=== PATIENT | male | born 1990 | race Caucasian/White ===

== ENCOUNTER 2017-03-27 21:21 | Emergency (ER) | payer BC, OTHER ==
[~2017-03-27] VITALS: Ht 175.3 cm; Wt 85.4 kg
[~2017-03-27 21:21] MED LIST: INSDGIPEN SC; INSU100I SC
[2017-03-27 21:45] VITALS: TEMP 37.3; Ht 175.3 cm; Wt 85.4 kg
[2017-03-27] MEDS ORDERED: KETOROLAC TROMETHAMINE 30 MG/ML VIAL IV STA (22:50)
[2017-03-27] MEDS ORDERED: ONDANSETRON INJ 2 MG/ML 2 ML VIAL IV STA (22:50)
[2017-03-27] MEDS ORDERED: OPTIRAY 320 IV PRN (23:00)
[2017-03-27] MEDS ORDERED: SODIUM CHLORIDE 0.9% 1000ML 1,000 ML IV ONE (23:00)
[2017-03-27 23:02] LABS: BASO % 0.2 %; BASO ABS # 0.02 K/uL (0-0.2); COMPLETE YES; EOS % 0.3 %; HEMATOCRIT 46.9 % (42-52); IG% 0.4 %; LYMPH % 6.6 %; LYMPH ABS # 0.75 K/uL (1.2-3.4); MEAN CELL VOLUME 85.6 fL (80-100); MEAN CORPUSCULAR HGB CONC 36.2 g/dl (32-36); MEAN PLATELET VOLUME 9.9 fL (7.4-10.4); NEUT % 86.5 %; PLATELET COUNT 244 K/uL (130-400); RED BLOOD COUNT 5.48 M/uL (4.7-6.1); WHITE BLOOD COUNT 11.38 K/uL (4.8-10.8)
[2017-03-27 23:06] LABS: URINE APPEARANCE CLEAR (CLEAR); URINE BILIRUBIN NEG (NEG); URINE COLOR YELLOW; URINE NITRITE NEG (NEG); URINE SPECIFIC GRAVITY 1.023 (1.000-1.030); UROBILINOGEN NEG (NEG); ZZUR CULT IF INDIC CLEAN CATCH NO
[2017-03-27 23:09] LABS: MANUAL MICROSCOPIC REQUIRED? NO; REVIEW REQ? NO
[2017-03-27 23:37] LABS: ALB/GLOB RATIO 1.2 (0.9-2); BETA-HYDROXYBUTYRATE 4.48 mg/dL (0.2-2.81); BUN/CREATININE RATIO 14.7 (10-20); CALCIUM 8.4 mg/dl (8.5-10.1); CREATININE 1.2 mg/dl (0.60-1.40); POTASSIUM 4.1 mmol/L (3.5-5.1)
[2017-03-28 00:53] LABS: VEN BLD GAS O2 SATURATION 91.4 %; VEN BLOOD GAS BASE EXCESS 0.9 mmol/L
[2017-03-28] MEDS ORDERED: SODIUM CHLORIDE 0.9% 1000ML 1,000 ML IV ONE (01:30)
--- NOTE | 2017-03-28 02:03 | EMERGENCY ROOM VISIT NOTE ---
History First contact with patient: 22:38 Chief Complaint: NAUSEA Stated Complaint: DIABETIC - DIZZINESS, HEADACHE, NAUSEA, BODY ACHE Nursing Triage Summary: Abdominal pain and nausea since last night. History of Present Illness The patient is a 27 year old male who presents to the Emergency Room with complaints of nausea and headache for the past one day. Additionally the patient is having some generalized abdominal discomfort. He is a type I diabetic and states that his sugar has been well controlled in the 180s. He has not had fever or chills. No known exposure to disease. He does not have chest pain, chest tightness, or shortness of breath. He is not having difficulties with using the bathroom. He rates his discomfort a crampy nonradiating 03/17. Review of Systems More than 10 systems were reviewed and otherwise negative with the exception of history of present illness. Past Medical/Surgical History Medical Problems: (1) Diabetes mellitus, type 2 Family History Diabetes mellitus Social History Smoking Status: Never Smoker Marital Status: in relationship Housing Status: lives with family Occupation Status: employed Current/Historical Medications Scheduled Insulin Glargine (Lantus Solostar), 20 UNITS SC HS Insulin Lispro (Human) (Humalog), SC WM Physical Exam Vital Signs Date Time Temp Pulse Resp B/P (MAP) Pulse Ox O2 Delivery O2 Flow Rate FiO2 03/28/17 02:24 60 18 113/53 96 Room Air 03/28/17 00:44 73 16 139/61 94 Room Air 03/27/17 23:20 86 20 121/64 93 Room Air 03/27/17 22:04 93 03/27/17 21:45 37.3 99 20 115/70 97 Room Air Physical Exam VITALS: Vitals are noted on the nurse's note and reviewed by myself. Vital signs stable. GENERAL: Well-developed, well-nourished, white male, who is in no acute distress and resting comfortably. Patient is cooperative with the examination. HEAD: Normocephalic atraumatic. EARS: External ear normal. External auditory canals clear, tympanic membranes pearly kamara without erythema or effusion bilaterally. EYES: Pupils equal round and reactive to light and accommodation. Conjunctivae without injection, sclerae without icterus. Extraocular movements intact. NOSE: Patent, turbinates without inflammation or discharge. MOUTH: Mucous membranes moist. Tonsils are not enlarged. Pharynx without erythema, blood, or exudate. Uvula midline. Airway patent. NECK: Supple without nuchal rigidity. No lymphadenopathy. No thyromegaly. Cervical spine is nontender. HEART: Regular rate and rhythm without murmurs gallops or rubs. LUNGS: Clear to auscultation bilaterally without wheezes, rales or rhonchi. No retractions or accessory muscle use. ABDOMEN: Positive normal bowel sounds x 4. Soft with generalized tenderness. No distinct point tenderness. No rebound or guarding. No CVA tenderness. MUSCULOSKELETAL: No muscle atrophy, erythema, or edema noted. Full range of motion without joint tenderness in all extremities. Medical Decision & Procedures ER Provider Diagnostic Interpretation: ABD/PELVIS IV AND ORAL CONT CT DOSE: 334.68 mGy.cm HISTORY: Flank pain abdominal pain TECHNIQUE: Multiaxial CT images of the abdomen and pelvis were performed following the use of intravenous and oral contrast. A dose lowering technique was utilized adhering to the principles of ALARA. COMPARISON STUDY: None. FINDINGS: The lung bases are clear. The liver, spleen, gallbladder, pancreas, kidneys, and adrenal glands are within normal limits. No bowel wall thickening or obstruction. The pelvic organs are unremarkable. No suspicious lytic or blastic osseous lesions. Nonvisualization of the appendix. No significant right lower quadrant inflammatory change IMPRESSION: No significant abnormality identified within the abdomen or pelvis. Nonvisualized appendix. No significant right lower quadrant inflammatory process. Laboratory Results 03/27/17 22:00 Red Blood Count 5.48, Mean Corpuscular Volume 85.6, Mean Corpuscular Hemoglobin 31.0, Mean Corpuscular Hemoglobin Concent 36.2, Mean Platelet Volume 9.9, Neutrophils (%) (Auto) 86.5, Lymphocytes (%) (Auto) 6.6, Monocytes (%) (Auto) 6.0, Eosinophils (%) (Auto) 0.3, Basophils (%) (Auto) 0.2, Neutrophils # (Auto) 9.86, Lymphocytes # (Auto) 0.75, Monocytes # (Auto) 0.68, Eosinophils # (Auto) 0.03, Basophils # (Auto) 0.02 03/27/17 22:00 Test 03/27/17 22:00 03/27/17 22:20 03/28/17 00:43 03/28/17 01:30 White Blood Count 11.38 K/uL (4.8-10.8) Red Blood Count 5.48 M/uL (4.7-6.1) Hemoglobin 17.0 g/dL (14.0-18.0) Hematocrit 46.9 % (42-52) Mean Corpuscular Volume 85.6 fL (80-100) Mean Corpuscular Hemoglobin 31.0 pg (25-34) Mean Corpuscular Hemoglobin Concent 36.2 g/dl (32-36) Platelet Count 244 K/uL (130-400) Mean Platelet Volume 9.9 fL (7.4-10.4) Neutrophils (%) (Auto) 86.5 % Lymphocytes (%) (Auto) 6.6 % Monocytes (%) (Auto) 6.0 % Eosinophils (%) (Auto) 0.3 % Basophils (%) (Auto) 0.2 % Neutrophils # (Auto) 9.86 K/uL (1.4-6.5) Lymphocytes # (Auto) 0.75 K/uL (1.2-3.4) Monocytes # (Auto) 0.68 K/uL (0.11-0.59) Eosinophils # (Auto) 0.03 K/uL (0-0.5) Basophils # (Auto) 0.02 K/uL (0-0.2) RDW Standard Deviation 38.0 fL (36.4-46.3) RDW Coefficient of Variation 12.1 % (11.5-14.5) Immature Granulocyte % (Auto) 0.4 % Immature Granulocyte # (Auto) 0.04 K/uL (0.00-0.02) Anion Gap 11.0 mmol/L (3-11) Est Creatinine Clear Calc Drug Dose 102.0 ml/min Estimated GFR () 96.8 Estimated GFR (Non- 83.5 BUN/Creatinine Ratio 14.7 (10-20) Calcium Level 8.4 mg/dl (8.5-10.1) Total Bilirubin 2.3 mg/dl (0.2-1) Aspartate Amino Transf (AST/SGOT) 16 U/L (15-37) Alanine Aminotransferase (ALT/SGPT) 23 U/L (12-78) Alkaline Phosphatase 93 U/L (45-117) Total Protein 7.3 gm/dl (6.4-8.2) Albumin 4.0 gm/dl (3.4-5.0) Globulin 3.3 gm/dl (2.5-4.0) Albumin/Globulin Ratio 1.2 (0.9-2) Lipase 71 U/L (73-393) Beta-Hydroxybutyric Acid 4.48 mg/dL (0.2-2.81) Urine Color YELLOW Urine Appearance CLEAR (CLEAR) Urine pH 6.0 (4.5-7.5) Urine Specific [place] 1.023 (1.000-1.030) Urine Protein NEG (NEG) Urine Glucose (UA) 3+ (NEG) Urine Ketones TRACE (NEG) Urine Occult Blood NEG (NEG) Urine Nitrite NEG (NEG) Urine Bilirubin NEG (NEG) Urine Urobilinogen NEG (NEG) Urine Leukocyte Esterase NEG (NEG) Venous Blood pH 7.42 (7.36-7.41) Venous Blood Partial Pressure CO2 40 mmHg (38.0-50.0) Venous Blood Partial Pressure O2 62 mmHg Venous Blood HCO3 25 mmol/L Venous Blood Oxygen Saturation 91.4 % Venous Blood Base Excess 0.9 mmol/L Bedside Glucose 375 mg/dl (70-99) Medications Administered Medications (Trade) Dose Ordered Sig/Candi Route Start Time Stop Time Status Last Admin Dose Admin Sodium Chloride 1,000 ml @ 999 mls/hr Q1H1M ONCE IV 03/27/17 23:00 03/28/17 00:00 DC 03/27/17 23:00 999 MLS/HR Ondansetron HCl (Zofran Inj) 4 mg NOW STAT IV 03/27/17 22:50 03/27/17 22:52 DC 03/27/17 23:09 4 MG Ketorolac Tromethamine (Toradol Inj) 30 mg NOW STAT IV 03/27/17 22:50 03/27/17 22:52 DC 03/27/17 23:09 30 MG Sodium Chloride 1,000 ml @ 999 mls/hr Q1H1M ONCE IV 03/28/17 01:30 03/28/17 02:30 DC 03/28/17 01:32 999 MLS/HR ED Course Physical exam and history were performed. Nursing notes, EMR, and Medication List were personally reviewed. Patient appears to have generalized abdominal cramping, nausea, and headache for the past one day. He is type I diabetic and his bedside glucose was nearly 400. IV access was established and labs were obtained. The patient was hydrated and medicated as above. CT scan of his abdomen and pelvis was performed. The patient has a very slightly elevated white blood cell count of 11,000. He does not have a significant anemia. His lab glucose is elevated at greater than 400 and he does have a small amount of ketones in his system. He is not acidotic. Lipase and transaminases are nondiagnostic. CT scan does not show acute findings. The patient was hydrated with normal saline throughout his stay. He felt much better after Toradol and Zofran. I discussed options of care with the patient including staying in the hospital, however he did voice a strong preference for discharge home. The patient is considered reliable and varying control of his diabetes usually. He will use his home insulin to manage his blood sugar and continue to drink lots of water to remain well hydrated. I suspect that he likely has a viral etiology for his discomfort, and this is exacerbating his glucose. He does not appear to be in DKA. The patient will need close follow- up, preferably in the next one day for recheck. He is to call his PCP to help arrange this. He was certainly invited back to the ER with any new, worsening, or concerning symptoms. The chart was completed utilizing [employer] Speech Voice Recognition Software. Grammatical errors, random word insertions, pronoun errors, and incomplete sentences are an occasional consequence of this system due to software limitations, ambient noise, and hardware issues. Any formal questions or concerns about the content, text, or information contained within the body of this dictation should be directly addressed to the provider for clarification. . Medical Decision Differential diagnosis: Etiologies such as appendicitis, diverticulitis, PUD, biliary pathology, UTI, pancreatitis, obstruction, mesenteric ischemia, aortic pathology, infections, inflammatory bowel disease, renal colic, as well as others were entertained. Impression Primary Impression: Generalized abdominal pain Additional Impression: Hyperglycemia due to type 1 diabetes mellitus Departure Information Dispostion Home / Self-Care Condition GOOD Forms HOME CARE DOCUMENTATION FORM, IMPORTANT VISIT INFORMATION Patient Instructions [facility] Additional Instructions You were seen and evaluated today on an emergency basis only. This is not a substitute for, or an effort to provide, complete comprehensive medical care. It is not possible to recognize and treat all injuries or illnesses in a single emergency department visit. For this reason it is recommended that you followup with your primary care physician later today for recheck of your condition. Call first thing in the morning to make your appointment. Let the office know you were seen in the ER to help facilitate care. Continue to manage your sugar at home. Drink plenty of water and remain well hydrated. You are welcome to return to the emergency department anytime with new, worsening, or concerning symptoms. Problem Qualifiers
[2017-03-28 02:24] VITALS: BP 113/53; PULSE 60; O2SAT 96
--- NOTE | 2017-03-28 06:33 | DIAGNOSTIC IMAGING REPORT ---
ABD/PELVIS IV AND ORAL CONT CT DOSE: 334.68 mGy.cm HISTORY: Flank pain abdominal pain TECHNIQUE: Multiaxial CT images of the abdomen and pelvis were performed following the use of intravenous and oral contrast. A dose lowering technique was utilized adhering to the principles of ALARA. COMPARISON STUDY: None. FINDINGS: The lung bases are clear. The liver, spleen, gallbladder, pancreas, kidneys, and adrenal glands are within normal limits. No bowel wall thickening or obstruction. The pelvic organs are unremarkable. No suspicious lytic or blastic osseous lesions. Nonvisualization of the appendix. No significant right lower quadrant inflammatory change IMPRESSION: No significant abnormality identified within the abdomen or pelvis. Nonvisualized appendix. No significant right lower quadrant inflammatory process. The above report was generated using voice recognition software. It may contain grammatical, syntax or spelling errors. Electronically signed by: Sd Osorio M.D. 03/28/2017 6:32 AM Dictated Date/Time: 03/28/2017 6:28 AM
== END 2017-03-28 02:26 | disposition home or self-care (01) ==
LOC: C.EDB 21:24 → C.EDA 03-28 02:26
DX: R10.84 Generalized abdominal pain (principal); E10.65 Type 1 diabetes mellitus with hyperglycemia; R11.0 Nausea; R51 Headache; Z83.3 Family history of diabetes mellitus